=== PATIENT | female | born 1975 | race Two or more races ===

== ENCOUNTER 2017-05-27 10:07 | Outpatient (CLI) | payer OTHER ==
[~2017-05-27 10:07] MED LIST: CLONAZEPAM0.5 MG; FLONASE16 GM NASAL; GILTUSS TR TAB1 EACH PO; HYZAAR 50-12.1 UDTAB PO; INTESTINEX680 MG PO; LEXAPRO5 MG; LOPRESSOR 50 MG PO; LOPRESSOR25 MG PO; ORPH100T PO; PRILOSEC10 MG PO; PRILOSEC2.5 MG; PRILOSEC2.5 MG PO; PROMETHAZINE W118 ML PO; REGLAN 10 MG PO; WELLBUTRIN XL300 MG; ZANTAC300 MG; ZANTAC300 MG PO; ZITHROMAX500 MG PO; ZYRTEC10 MG PO
== END 2017-05-27 10:14 | disposition home or self-care (01) ==
LOC: NUCLEAR 10:07
DX: I50.1 Left ventricular failure, unspecified (principal)

== ENCOUNTER 2018-01-11 07:12 | Outpatient (CLI) | payer OTHER | END 2018-01-11 07:20 | disposition home or self-care (01) | LOC: LAB 07:12 | DX: Z11.3 Encounter for screening for infections with a predominantly sexual mode of transmission (principal); Z13.1 Encounter for screening for diabetes mellitus ==

== ENCOUNTER 2018-07-11 11:18 | Outpatient (CLI) | payer OTHER | END 2018-07-11 11:21 | disposition home or self-care (01) | LOC: SONOGRAMA 11:18 | DX: E04.1 Nontoxic single thyroid nodule (principal) ==

== ENCOUNTER → 2018-07-25 12:34 | Outpatient (CLI) | payer OTHER | END | disposition home or self-care (01) | LOC: LAB 12:34 | DX: J20.0 Acute bronchitis due to Mycoplasma pneumoniae (principal); Z11.3 Encounter for screening for infections with a predominantly sexual mode of transmission ==

== ENCOUNTER 2018-09-07 15:16 | Outpatient (CLI) | payer OTHER ==
[~2018-09-07] VITALS: Ht 167.6 cm; Wt 98.0 kg
== END 2018-09-07 15:35 | disposition home or self-care (01) ==
LOC: OFIC 805 15:16
DX: R49.0 Dysphonia (principal); R05 Cough; K21.0 Gastro-esophageal reflux disease with esophagitis

== ENCOUNTER 2018-09-27 15:08 | Outpatient (CLI) | payer OTHER | END 2018-09-27 17:00 | disposition home or self-care (01) | LOC: TOM 15:08 | DX: R22.1 Localized swelling, mass and lump, neck (principal); R13.19 Other dysphagia ==

== ENCOUNTER 2018-10-30 07:46 | Outpatient (CLI) | payer OTHER | END 2018-10-30 09:11 | disposition home or self-care (01) | LOC: LAB 07:46 | DX: E03.8 Other specified hypothyroidism (principal); E11.9 Type 2 diabetes mellitus without complications; Z00.00 Encounter for general adult medical examination without abnormal findings ==

== ENCOUNTER 2018-11-23 15:26 | Outpatient (CLI) | payer OTHER ==
[~2018-11-23] VITALS: Ht 152.4 cm; Wt 98.0 kg
== END 2018-11-23 15:40 | disposition home or self-care (01) ==
LOC: OFIC 805 15:26
DX: K21.0 Gastro-esophageal reflux disease with esophagitis (principal); R05 Cough; R49.0 Dysphonia

== ENCOUNTER → 2019-03-13 15:53 | Outpatient (CLI) | payer OTHER | END | disposition home or self-care (01) | LOC: LAB 15:53 | DX: R05 Cough (principal); J11.1 Influenza due to unidentified influenza virus with other respiratory manifestations ==

== ENCOUNTER 2019-03-22 15:13 | Outpatient (CLI) | payer OTHER | END 2019-03-22 15:21 | disposition home or self-care (01) | LOC: SONOGRAMA 15:13 → MAMO-SONO 15:15 → SONOGRAMA 15:21 | DX: N94.89 Other specified conditions associated with female genital organs and menstrual cycle (principal); R10.2 Pelvic and perineal pain; N94.0 Mittelschmerz ==

== ENCOUNTER 2019-03-23 06:51 | Outpatient (CLI) | payer OTHER | END 2019-03-23 06:57 | disposition home or self-care (01) | LOC: LAB 06:51 | DX: E03.8 Other specified hypothyroidism (principal); I10 Essential (primary) hypertension; Z00.00 Encounter for general adult medical examination without abnormal findings; R78.0 Finding of alcohol in blood; N39.0 Urinary tract infection, site not specified; Z11.4 Encounter for screening for human immunodeficiency virus [HIV]; Z12.11 Encounter for screening for malignant neoplasm of colon; E55.9 Vitamin D deficiency, unspecified; Z21 Asymptomatic human immunodeficiency virus [HIV] infection status; R79.89 Other specified abnormal findings of blood chemistry ==

== ENCOUNTER 2019-03-23 11:47 | Outpatient (CLI) | payer OTHER | END 2019-03-23 16:04 | disposition home or self-care (01) | LOC: MAMO-SONO 11:47 | DX: N64.59 Other signs and symptoms in breast (principal); Z12.31 Encounter for screening mammogram for malignant neoplasm of breast; Z87.898 Personal history of other specified conditions; N64.9 Disorder of breast, unspecified ==

== ENCOUNTER 2019-07-12 15:58 | Outpatient (CLI) | payer OTHER | END 2019-07-12 16:05 | disposition home or self-care (01) | LOC: RAD 15:58 | DX: M79.642 Pain in left hand (principal); M79.641 Pain in right hand ==

== ENCOUNTER 2020-01-10 15:27 | Outpatient (CLI) | payer OTHER | END 2020-01-10 15:34 | disposition home or self-care (01) | LOC: LAB 15:27 | PROVIDERS: ATTEND Internal Medicine Cardiovascular Disease | DX: E03.8 Other specified hypothyroidism (principal); I10 Essential (primary) hypertension; E11.9 Type 2 diabetes mellitus without complications; E78.2 Mixed hyperlipidemia; R10.84 Generalized abdominal pain; R05 Cough; R06.2 Wheezing; R50.9 Fever, unspecified; M81.0 Age-related osteoporosis without current pathological fracture; E55.9 Vitamin D deficiency, unspecified ==

== ENCOUNTER 2020-01-11 07:14 | Outpatient (CLI) | payer OTHER | END 2020-01-11 07:26 | disposition home or self-care (01) | LOC: RAD 07:14 → MAMO-SONO 07:15 → RAD 07:26 | PROVIDERS: ATTEND Internal Medicine Cardiovascular Disease | DX: J44.9 Chronic obstructive pulmonary disease, unspecified (principal); R10.84 Generalized abdominal pain ==

== ENCOUNTER → 2020-04-18 07:20 | Outpatient (CLI) | payer OTHER | END | disposition home or self-care (01) | LOC: LAB 07:20 | PROVIDERS: ATTEND Internal Medicine Cardiovascular Disease | DX: E11.9 Type 2 diabetes mellitus without complications (principal) ==

== ENCOUNTER 2020-04-29 15:05 | Outpatient (CLI) | payer OTHER | END 2020-04-29 15:16 | disposition home or self-care (01) | LOC: MAMO-SONO 15:05 | PROVIDERS: ATTEND Obstetrics & Gynecology | DX: R92.0 Mammographic microcalcification found on diagnostic imaging of breast (principal) ==

== ENCOUNTER 2020-05-06 15:10 | Outpatient (CLI) | payer OTHER | END 2020-05-06 15:15 | disposition home or self-care (01) | LOC: SONOGRAMA 15:10 | PROVIDERS: ATTEND Internal Medicine Cardiovascular Disease | DX: E03.8 Other specified hypothyroidism (principal) ==

== ENCOUNTER 2020-08-21 07:03 | Outpatient (CLI) | payer OTHER | END 2020-08-21 07:07 | disposition home or self-care (01) | LOC: LAB 07:03 | PROVIDERS: ATTEND Internal Medicine Cardiovascular Disease | DX: I10 Essential (primary) hypertension (principal); E11.9 Type 2 diabetes mellitus without complications; E03.8 Other specified hypothyroidism; E78.2 Mixed hyperlipidemia ==

== ENCOUNTER 2021-01-19 07:34 | Outpatient (CLI) | payer OTHER | END 2021-01-19 07:38 | disposition home or self-care (01) | LOC: LAB 07:34 | PROVIDERS: ATTEND Internal Medicine Cardiovascular Disease | DX: I10 Essential (primary) hypertension (principal); E11.9 Type 2 diabetes mellitus without complications; E03.8 Other specified hypothyroidism; E78.2 Mixed hyperlipidemia ==

== ENCOUNTER 2021-02-10 14:06 | Outpatient (CLI) | payer OTHER | END 2021-02-10 14:13 | disposition home or self-care (01) | LOC: SONOGRAMA 14:06 → MAMO-SONO 15:15 | PROVIDERS: ATTEND Obstetrics & Gynecology | DX: N88.8 Other specified noninflammatory disorders of cervix uteri (principal); N94.89 Other specified conditions associated with female genital organs and menstrual cycle; R10.2 Pelvic and perineal pain; N94.0 Mittelschmerz ==

== ENCOUNTER 2021-03-02 08:00 | Outpatient (CLI) | payer OTHER | END 2021-03-02 08:30 | disposition home or self-care (01) | LOC: PPH VACUNA 08:00 | PROVIDERS: ATTEND Emergency Medicine Pediatric Emergency Medicine | DX: Z23 Encounter for immunization (principal) ==

== ENCOUNTER → 2021-03-03 07:05 | Outpatient (CLI) | payer OTHER | END | disposition home or self-care (01) | LOC: LAB 07:05 | PROVIDERS: ATTEND Obstetrics & Gynecology | DX: N39.0 Urinary tract infection, site not specified (principal); E03.8 Other specified hypothyroidism; I10 Essential (primary) hypertension; Z00.00 Encounter for general adult medical examination without abnormal findings; E78.89 Other lipoprotein metabolism disorders; Z11.4 Encounter for screening for human immunodeficiency virus [HIV]; Z12.11 Encounter for screening for malignant neoplasm of colon; E55.9 Vitamin D deficiency, unspecified; Z21 Asymptomatic human immunodeficiency virus [HIV] infection status; R79.89 Other specified abnormal findings of blood chemistry ==

== ENCOUNTER → 2021-03-04 07:23 | Outpatient (CLI) | payer OTHER | END | disposition home or self-care (01) | LOC: LAB 07:23 | PROVIDERS: ATTEND Obstetrics & Gynecology | DX: E03.8 Other specified hypothyroidism (principal); Z00.00 Encounter for general adult medical examination without abnormal findings; I10 Essential (primary) hypertension; E78.00 Pure hypercholesterolemia, unspecified; N39.0 Urinary tract infection, site not specified; Z11.4 Encounter for screening for human immunodeficiency virus [HIV]; E55.9 Vitamin D deficiency, unspecified; Z21 Asymptomatic human immunodeficiency virus [HIV] infection status; R79.89 Other specified abnormal findings of blood chemistry ==

== ENCOUNTER 2021-04-28 07:38 | Outpatient (CLI) | payer OTHER | END 2021-04-28 07:44 | disposition home or self-care (01) | LOC: MRI 07:38 | PROVIDERS: ATTEND Obstetrics & Gynecology | DX: R10.2 Pelvic and perineal pain (principal) | CPT/HCPCS: 72196 ==

== ENCOUNTER 2021-06-26 06:54 | Outpatient (CLI) | payer OTHER | END 2021-06-26 06:55 | disposition home or self-care (01) | LOC: LAB 06:54 | PROVIDERS: ATTEND Internal Medicine Cardiovascular Disease | DX: I10 Essential (primary) hypertension (principal); E11.9 Type 2 diabetes mellitus without complications; E03.8 Other specified hypothyroidism; E78.2 Mixed hyperlipidemia ==

== ENCOUNTER 2021-07-07 15:15 | Outpatient (CLI) | payer OTHER | END 2021-07-07 15:17 | disposition home or self-care (01) | LOC: RAD 15:15 | PROVIDERS: ATTEND Internal Medicine Cardiovascular Disease | DX: M17.9 Osteoarthritis of knee, unspecified (principal); J44.9 Chronic obstructive pulmonary disease, unspecified ==

== ENCOUNTER 2021-08-03 08:02 | Outpatient (CLI) | payer OTHER | END 2021-08-03 10:51 | disposition home or self-care (01) | LOC: NUCLEAR 08:02 | PROVIDERS: ATTEND Internal Medicine Cardiovascular Disease | DX: I10 Essential (primary) hypertension (principal) ==

== ENCOUNTER 2021-12-24 07:06 | Outpatient (CLI) | payer OTHER | END 2021-12-24 07:11 | disposition home or self-care (01) | LOC: LAB 07:06 | PROVIDERS: ATTEND Internal Medicine Cardiovascular Disease | DX: I10 Essential (primary) hypertension (principal); E11.9 Type 2 diabetes mellitus without complications; E03.9 Hypothyroidism, unspecified; E78.2 Mixed hyperlipidemia ==

== ENCOUNTER 2023-03-30 15:13 | Outpatient (CLI) | payer OTHER | END 2023-03-30 15:44 | disposition home or self-care (01) | LOC: MAMO-SONO 15:13 | PROVIDERS: ATTEND Surgery | DX: Z12.31 Encounter for screening mammogram for malignant neoplasm of breast (principal); N60.11 Diffuse cystic mastopathy of right breast; N60.12 Diffuse cystic mastopathy of left breast ==

== ENCOUNTER 2023-04-11 15:06 | Outpatient (CLI) | payer OTHER | END 2023-04-11 15:23 | disposition home or self-care (01) | LOC: SONOGRAMA 15:06 | PROVIDERS: ATTEND Internal Medicine Cardiovascular Disease | DX: E03.9 Hypothyroidism, unspecified (principal); Z88.5 Allergy status to narcotic agent ==

== ENCOUNTER 2023-07-27 14:10 | Outpatient (CLI) | payer OTHER | END 2023-07-27 14:20 | disposition home or self-care (01) | LOC: SONOGRAMA 14:10 | PROVIDERS: ATTEND Obstetrics & Gynecology | DX: N94.0 Mittelschmerz (principal); R10.2 Pelvic and perineal pain; N94.89 Other specified conditions associated with female genital organs and menstrual cycle ==

== ENCOUNTER 2023-08-18 08:08 | Outpatient (CLI) | payer OTHER ==
[2023-08-18 09:02] LABS: HEMATOCRIT 33.8 % (36.0-45.00); HEMOGLOBIN 11.4 g/dL (12.0-15.00); MEAN CELL VOLUME 84.6 fL (80.00-100.00); MEAN CORPUSCULAR HEMOGLOBIN 28.5 pg (27.00-32.0); MEAN CORPUSCULAR HGB CONC 33.6 g/dl (32.0-36.0); PLATELET COUNT 264 K/uL (150-450); RED CELL DISTRIBUTION WIDTH 14.9 % (11.5-14.5)
[2023-08-18 09:58] LABS: ALBUMIN 3.7 gm/dL (3.4-5.0); BILIRUBIN TOTAL 0.38 mg/dL (0.3-1.2); CALCIUM 9.3 mg/dL (8.5-10.1); CHOL HDL RATIO 4.5 (0-5.0); GFR 59.43; GLOBULINA 3.6 G/DL (2.4-3.5); POTASSIUM 4.82 mEq/L (3.5-5.1); T4 FREE 0.9 NG/ML (0.76-1.46); T4 TOTAL 7.86 UG/DL (4.8-13.9); TOTAL PROTEIN 7.3 gm/dL (6.4-8.2); TSH 0.909 uIU/mL (0.358-3.74)
[2023-08-18 10:04] LABS: MYCOPLASMA PNEUMONIAE IGM NON REACTIVE (NO REACTIVE)
[2023-08-18 10:38] LABS: URINE APPEARANCE Clear; URINE BILIRRUBIN Negative (NEGATIVE); URINE BLOOD Negative; URINE COLOR Yellow; URINE GLUCOSE Negative (NEGATIVE); URINE LEUKOCYTE Negative; URINE NITRATE Negative; URINE PROTEIN Negative (NEGATIVE); URINE UROBILINOGEN 0.2 E.U./dl
[2023-08-18 10:39] LABS: URINE BACTERIA 89.3 uL (0.0-1933); URINE EPITHELIAL CELLS 2.9 uL (0.0-38.8); URINE RBC 4.3 uL (0.0-20.8)
[2023-08-18 13:35] LABS: T3 TOTAL 1.12 ng/ml (0.846-2.02); VITAMIN D3 25 HYDROXY 33.04 ng/ml (30-120)
== END 2023-08-18 13:39 | disposition home or self-care (01) ==
LOC: LAB 08:08
PROVIDERS: ATTEND Obstetrics & Gynecology
DX: I10 Essential (primary) hypertension (principal); E03.9 Hypothyroidism, unspecified; N39.0 Urinary tract infection, site not specified; Z11.4 Encounter for screening for human immunodeficiency virus [HIV]; Z12.11 Encounter for screening for malignant neoplasm of colon; E55.9 Vitamin D deficiency, unspecified; R79.9 Abnormal finding of blood chemistry, unspecified; R79.89 Other specified abnormal findings of blood chemistry

== ENCOUNTER → 2024-01-12 06:40 | Outpatient (CLI) | payer OTHER ==
[2024-01-12 07:15] LABS: HEMATOCRIT 35.1 % (36.0-45.00); HEMOGLOBIN 11.8 g/dL (12.0-15.00); MEAN CORPUSCULAR HEMOGLOBIN 28.8 pg (27.00-32.0); MEAN CORPUSCULAR HGB CONC 33.5 g/dl (32.0-36.0); PLATELET COUNT 272 K/uL (150-450); RED BLOOD COUNT 4.08 M/uL (4.00-6.00); RED CELL DISTRIBUTION WIDTH 16.6 % (11.5-14.5)
[2024-01-12 07:18] LABS: PH,URINE 5.5 (5.0-8.0); URINE APPEARANCE Clear; URINE BILIRRUBIN Negative (NEGATIVE); URINE BLOOD Negative; URINE COLOR Yellow; URINE GLUCOSE Negative (NEGATIVE); URINE KETONE Negative (NEGATIVE); URINE LEUKOCYTE Negative; URINE NITRATE Negative; URINE PROTEIN Negative (NEGATIVE); URINE UROBILINOGEN 0.2 E.U./dl
[2024-01-12 07:22] LABS: URINE BACTERIA 65.4 uL (0.0-1933); URINE EPITHELIAL CELLS 3.2 uL (0.0-38.8); URINE RBC 23.5 uL (0.0-20.8); URINE WBC 4.4 uL (0.0-23.2)
[2024-01-12 08:10] LABS: CHOL HDL RATIO 4.9 (0-5.0); CREATININE SERUM 0.92 mg/dL (0.55-1.02); GFR 65.15; POTASSIUM 5.01 mEq/L (3.5-5.1); T4 TOTAL 7.9 UG/DL (4.8-13.9); TSH 1.16 uIU/mL (0.358-3.74)
== END | disposition home or self-care (01) ==
LOC: LAB 06:40
PROVIDERS: ATTEND Internal Medicine Cardiovascular Disease
DX: E11.9 Type 2 diabetes mellitus without complications (principal); E03.9 Hypothyroidism, unspecified; E78.2 Mixed hyperlipidemia; I10 Essential (primary) hypertension

== ENCOUNTER 2024-07-12 07:20 | Outpatient (CLI) | payer OTHER ==
[2024-07-12 07:37] LABS: HEMATOCRIT 34.5 % (36.0-45.00); HEMOGLOBIN 11.5 g/dL (12.0-15.00); MEAN CELL VOLUME 86.2 fL (80.00-100.00); MEAN CORPUSCULAR HEMOGLOBIN 28.7 pg (27.00-32.0); MEAN CORPUSCULAR HGB CONC 33.3 g/dl (32.0-36.0); PLATELET COUNT 244 K/uL (150-450); RED BLOOD COUNT 4.01 M/uL (4.00-6.00); RED CELL DISTRIBUTION WIDTH 15.5 % (11.5-14.5)
[2024-07-12 07:57] LABS: PH,URINE 5.5 (5.0-8.0); URINE APPEARANCE Clear; URINE BILIRRUBIN Negative (NEGATIVE); URINE BLOOD Negative; URINE COLOR Yellow; URINE GLUCOSE Negative (NEGATIVE); URINE KETONE Negative (NEGATIVE); URINE LEUKOCYTE Negative; URINE NITRATE Negative; URINE PROTEIN Negative (NEGATIVE); URINE UROBILINOGEN 0.2 E.U./dl
[2024-07-12 08:01] LABS: URINE BACTERIA 515.2 uL (0.0-1933); URINE EPITHELIAL CELLS 12.3 uL (0.0-38.8); URINE RBC 8.5 uL (0.0-20.8); URINE WBC 5.5 uL (0.0-23.2)
[2024-07-12 08:02] LABS: URINE CAST 0.44 uL (0.0-1.40)
[2024-07-12 08:40] LABS: ALBUMIN 3.6 gm/dL (3.4-5.0); BILIRUBIN TOTAL 0.21 mg/dL (0.3-1.2); CALCIUM 8.7 mg/dL (8.5-10.1); CHOL HDL RATIO 5.1 (0-5.0); CREATININE SERUM 0.74 mg/dL (0.55-1.02); GFR 83.76; GLOBULINA 3.5 G/DL (2.4-3.5); POTASSIUM 4.15 mEq/L (3.5-5.1); T4 TOTAL 7.97 UG/DL (4.8-13.9); TOTAL PROTEIN 7.1 gm/dL (6.4-8.2); TSH 1.12 uIU/mL (0.358-3.74)
[2024-07-12 10:40] LABS: T3 TOTAL 1.36 ng/ml (0.846-2.02); VITAMIN D3 25 HYDROXY 35.36 ng/ml (30-120)
[2024-07-13 10:09] LABS: ESTRADIOL SERUM 71.6 pg/mL (.); FOLLICLE STIMULATING HORMONE 7.6 mIU/mL (.); LEUTEINIZING HORMONE 6.7 mIU/mL (.); TESTOSTERONE,TOTAL < 3.00 ng/dL (4-50)
== END 2024-07-12 07:22 | disposition home or self-care (01) ==
LOC: LAB 07:20
PROVIDERS: ATTEND Internal Medicine Cardiovascular Disease
DX: I10 Essential (primary) hypertension (principal); E11.9 Type 2 diabetes mellitus without complications; E03.9 Hypothyroidism, unspecified; E78.2 Mixed hyperlipidemia; N80.9 Endometriosis, unspecified

== ENCOUNTER 2024-08-27 15:00 | Outpatient (CLI) | payer OTHER ==
[2024-08-29 07:04] LABS: HEPATITIS A ANTIBODY IGG Negative (Negative); HEPATITIS B SURFACE ANTIBODY Reactive (.); HEPATITIS C VIRUS ANTIBODY Non Reactive (Non Reactive)
== END 2024-08-27 15:05 | disposition home or self-care (01) ==
LOC: LAB 15:00
DX: A64 Unspecified sexually transmitted disease (principal); B19.9 Unspecified viral hepatitis without hepatic coma

== ENCOUNTER 2024-09-14 14:14 | Outpatient (CLI) | payer OTHER | END 2024-09-14 14:19 | disposition home or self-care (01) | LOC: TOM 14:14 | PROVIDERS: ATTEND Internal Medicine Pulmonary Disease | DX: R91.8 Other nonspecific abnormal finding of lung field (principal) ==

== ENCOUNTER 2024-09-27 09:45 | Emergency (ER) | payer OTHER ==
[~2024-09-27] VITALS: Ht 167.6 cm; Wt 107.0 kg
[2024-09-27 09:50] VITALS: BP 165/77; O2SAT 99
[2024-09-27] MEDS ORDERED: LEVALBUTEROL HCL 0.63 MG/3 ML SOLUTION IH SCH (10:15)
[2024-09-27 11:12] LABS: HEMATOCRIT 35.5 % (36.0-45.00); HEMOGLOBIN 11.9 g/dL (12.0-15.00); MEAN CELL VOLUME 87.4 fL (80.00-100.00); MEAN CORPUSCULAR HEMOGLOBIN 29.4 pg (27.00-32.0); MEAN CORPUSCULAR HGB CONC 33.6 g/dl (32.0-36.0); PLATELET COUNT 209 K/uL (150-450); RED BLOOD COUNT 4.06 M/uL (4.00-6.00); RED CELL DISTRIBUTION WIDTH 15.4 % (11.5-14.5)
[2024-09-27] MEDS ORDERED: LEVALBUTEROL HCL 0.63 MG/3 ML SOLUTION IH ONE (11:26)
[2024-09-27 11:38] LABS: CALCIUM 9.2 mg/dL (8.5-10.1); CREATININE SERUM 0.8 mg/dL (0.55-1.02); GFR 76.56; POTASSIUM 4.45 mEq/L (3.5-5.1)
[2024-09-27 11:38] LABS: COVID-19 AG NEGATIVE (NEGATIVE)
[2024-09-27 11:39] LABS: INFLUENZA A AG NEGATIVE (NEGATIVE)
[2024-09-27 12:06] LABS: ABG PO2 89.4 mmHg (80-100); ABG pCO2 38.2 mmHg (35-45); BASE EXCESS 0 mmol/l; BICARBONATE 24.2 mmol/l (23-25); Tco2 25.4 mmol/l
[2024-09-27 13:09] LABS: o2 21 %
[2024-09-27 13:10] LABS: allen test SATISFACTORY; mode ROOM AIR; puncture site RADIAL RIGHT
== END 2024-09-27 14:34 | disposition home or self-care (01) ==
LOC: ER 09:46
PROVIDERS: Emergency Medicine
DX: J22 Unspecified acute lower respiratory infection (principal); R06.02 Shortness of breath; J45.909 Unspecified asthma, uncomplicated; Z20.822 Contact with and (suspected) exposure to COVID-19; Z88.5 Allergy status to narcotic agent

== ENCOUNTER 2024-11-01 14:33 | Outpatient (CLI) | payer OTHER | END 2024-11-01 14:36 | disposition home or self-care (01) | LOC: SONOGRAMA 14:33 | PROVIDERS: ATTEND Obstetrics & Gynecology | DX: R10.2 Pelvic and perineal pain (principal) ==

== ENCOUNTER → 2024-11-02 11:33 | Outpatient (CLI) | payer OTHER ==
[2024-11-02 08:53] LABS: ALBUMIN 3.5 gm/dL (3.4-5.0); BILIRUBIN TOTAL 0.36 mg/dL (0.3-1.2); CREATININE SERUM 0.88 mg/dL (0.55-1.02); GFR 68.58; GLOBULINA 3.5 G/DL (2.4-3.5); POTASSIUM 3.87 mEq/L (3.5-5.1); T4 FREE 0.79 NG/ML (0.76-1.46); TSH 1.4 uIU/mL (0.358-3.74)
[2024-11-03 05:07] LABS: FOLLICLE STIMULATING HORMONE 3.3 mIU/mL (.); HEPATITIS C VIRUS ANTIBODY Non Reactive (Non Reactive); PROGESTERONA 2.2 ng/mL (.)
[2024-11-06 09:12] LABS: T T < 3 ng/dL (4-50); test free < 0.2 pg/mL (0.0-4.2)
[2024-11-06 13:12] LABS: TESTOSTERONE,TOTAL < 3.00 ng/dL (4-50)
== END | disposition home or self-care (01) ==
LOC: LAB 11-01 14:04
PROVIDERS: ATTEND Obstetrics & Gynecology
DX: Z12.11 Encounter for screening for malignant neoplasm of colon (principal); E03.8 Other specified hypothyroidism; N95.1 Menopausal and female climacteric states; I10 Essential (primary) hypertension; C51.9 Malignant neoplasm of vulva, unspecified; N30.00 Acute cystitis without hematuria; E83.51 Hypocalcemia; A64 Unspecified sexually transmitted disease; N39.0 Urinary tract infection, site not specified; R97.8 Other abnormal tumor markers; R79.89 Other specified abnormal findings of blood chemistry; E55.9 Vitamin D deficiency, unspecified; A60.9 Anogenital herpesviral infection, unspecified

== ENCOUNTER 2024-11-07 14:13 | Outpatient (CLI) | payer OTHER | END 2024-11-07 14:18 | disposition home or self-care (01) | LOC: MAMO-SONO 14:13 | PROVIDERS: ATTEND Obstetrics & Gynecology | DX: N60.11 Diffuse cystic mastopathy of right breast (principal); N60.12 Diffuse cystic mastopathy of left breast ==

== ENCOUNTER → 2024-11-19 10:12 | Outpatient (CLI) | payer OTHER | END | disposition home or self-care (01) | LOC: NUCLEAR 10:12 | PROVIDERS: ATTEND Internal Medicine Pulmonary Disease | DX: I50.22 Chronic systolic (congestive) heart failure (principal) ==

== ENCOUNTER 2024-11-25 00:45 | Emergency (ER) | payer OTHER ==
[~2024-11-25] VITALS: Ht 167.6 cm; Wt 109.3 kg
[2024-11-25 01:49] LABS: BASO % 0.2 % (0.1-1.2); EOS # 0.09 (0.04-0.54); HEMATOCRIT 36.5 % (34.1-44.9); HEMOGLOBIN 12.3 g/dL (11.2-15.7); LYMPH # 3.15 (1.18-3.74); LYMPH % 34.9 % (19.3-53.1); MEAN CORPUSCULAR HEMOGLOBIN 29.6 pg (25.6-32.2); MONO # 0.62 (0.24-0.82); MONO % 6.9 % (4.7-12.5); NEUT # 5.11 (1.56-6.13); NEUT % 56.7 % (34.0-71.1); PLATELET COUNT 285 K/uL (163-369); RED BLOOD COUNT 4.16 M/uL (3.93-5.22)
[2024-11-25 02:06] LABS: ALBUMIN 3.3 gm/dL (3.4-5.0); BILIRUBIN TOTAL 0.36 mg/dL (0.3-1.2); CALCIUM 8.9 mg/dL (8.5-10.1); CREATININE SERUM 0.99 mg/dL (0.55-1.02); GFR 59.87; GLOBULINA 3.4 G/DL (2.4-3.5); POTASSIUM 4.28 mEq/L (3.5-5.1); TOTAL PROTEIN 6.7 gm/dL (6.4-8.2)
== END 2024-11-25 02:58 | disposition home or self-care (01) ==
LOC: ER 00:52
PROVIDERS: General Practice
DX: R00.2 Palpitations (principal); R07.89 Other chest pain; I10 Essential (primary) hypertension; Z88.6 Allergy status to analgesic agent

== ENCOUNTER 2024-12-03 10:35 | Outpatient (CLI) | payer OTHER | END 2024-12-03 10:39 | disposition home or self-care (01) | LOC: NUCLEAR 10:35 | PROVIDERS: ATTEND Internal Medicine | DX: R00.2 Palpitations (principal) ==

== ENCOUNTER → 2025-01-04 08:06 | Outpatient (CLI) | payer OTHER | END | disposition home or self-care (01) | LOC: NUCLEAR 08:00 | PROVIDERS: ATTEND Internal Medicine | DX: R07.1 Chest pain on breathing (principal) ==

== ENCOUNTER → 2025-01-22 06:57 | Outpatient (CLI) | payer OTHER | END | disposition home or self-care (01) | LOC: LAB 06:57 | PROVIDERS: ATTEND Internal Medicine Cardiovascular Disease | DX: I10 Essential (primary) hypertension (principal); E11.9 Type 2 diabetes mellitus without complications; E03.9 Hypothyroidism, unspecified ==

== ENCOUNTER 2025-02-05 14:54 | Outpatient (CLI) | payer OTHER | END 2025-02-05 14:58 | disposition home or self-care (01) | LOC: LAB 14:54 | PROVIDERS: ATTEND Internal Medicine Pulmonary Disease | DX: J45.41 Moderate persistent asthma with (acute) exacerbation (principal); D72.10 Eosinophilia, unspecified ==